=== PATIENT | male | born 1960 | race Caucasian/White ===

== ENCOUNTER 2017-10-14 17:36 | Emergency (ER) | payer OTHER, SELFPAY ==
[2017-10-14 17:44] VITALS: BP 148/88; PULSE 74; RESP 16; TEMP 36.5; O2SAT 97
--- NOTE | 2017-10-14 18:07 | ED.GENADUL_ITS ---
Disposition Clinical Impression: Right forearm thrombophlebitis Disposition: HOME Condition: Good Instructions: Superficial Thrombophlebitis (ED) Additional Instructions: I have ordered an outpatient ultrasound for you for tomorrow to rule out deep vein thrombus. We will treat you for superficial venous thrombophlebitis.. The radiology scheduling number is [phone]. If you do not hear from the schedule by 10 AM, please call to make an appointment time. May treat with warm, moist heat to reduce discomfort. Return to the emergency room he developed chest pain, shortness of breath, or any other acute concerns. Medical Decision Making - Medical Decision Making 57-year-old male with right forearm thrombophlebitis, cannot exclude DVT although I think this is less likely. Discussed with him management options at this late hour of the day. We will defer anticoagulation. I will order an outpatient ultrasound for tomorrow. Patient will be discharged home in interim. If the ultrasound is negative he will treat for thrombophlebitis. 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 He underwent uneventful right biceps tear repair 3 weeks ago. Today he noticed right forearm swelling and discomfort consistent with previous thrombophlebitis. Is not a chest pain or shortness of breath. It is mild, constant, achy. There is been no other significant change to the patient's condition. No exacerbating or ameliorating factors. - Related Data Gabapentin 100 mg PO TID 12/15/15 Insulin Pump Cartridge [Cartridge Stamped] 1 each SQ 12/15/15 Lisinopril 10 mg PO DIRECTED 12/15/15 Pindolol 5 mg PO BID 12/15/15 Allergies Allergy/AdvReac Type Severity Reaction Status Date / Time erythromycin base Allergy Nausea Unverified 10/14/17 17:49 Past Medical History - Past Medical History Medical history: diabetes, hypertension Surgical history: other (knee surgery arthroscopy, carpel tunnel release, insulin pump. ) General Exam - General Limitations: no limitations General appearance: in no apparent distress - Head Head exam: Present: atraumatic, normocephalic - Eye Eye exam: Present: PERRL, EOMI - Respiratory Respiratory exam: Present: normal lung sounds bilaterally. Absent: respiratory distress - Cardiovascular Cardiovascular Exam: Present: regular rate, normal rhythm - GI/Abdominal GI/Abdominal exam: Present: soft. Absent: distended - Extremities Exam Extremities exam: Present: normal capillary refill, other (The forearm has right proximal surgical incision well-healed. There is evidence of linear, tubular tenderness along the mid forearm consistent with thrombophlebitis. There is no swelling or pain of the humerus. No lymphadenopathy. 2+ radial pulse bilaterally. Full range of motion limited somewhat by the patient's postsurgical condition.) - Psychiatric Psychiatric exam: Present: normal affect, normal mood - Skin Skin exam: Present: warm, dry, intact Course Vital Signs - 24 hr 10/14/17 17:44 Temperature 36.5 C Pulse 74 Respiratory 16 Rate Blood Pressure 148/88 Pulse Oximetry 97
== END 2017-10-14 18:13 | disposition home or self-care (01) ==
PROVIDERS: Emergency Provider Emergency Medicine; PCP Family Medicine
DX: I80.8 Phlebitis and thrombophlebitis of other sites (principal); Z86.718 Personal history of other venous thrombosis and embolism; I10 Essential (primary) hypertension; E11.9 Type 2 diabetes mellitus without complications; Z96.41 Presence of insulin pump (external) (internal)
CPT/HCPCS: 99282

== ENCOUNTER 2017-10-15 12:16 | Outpatient (CLI) | payer OTHER, SELFPAY ==
--- NOTE | 2017-10-15 12:41 | DI.REPORT_ITS ---
SYMPTOM/DIAGNOSIS: H/O DVT, RT ARM PAIN AND SWELLING S/P SURGERY, ? DVT RIGHT UPPER EXTREMITY ULTRASOUND: There is thrombus seen in a portion of the cephalic vein distal to the elbow. The jugular, subclavian, axillary, basilic and brachial veins are patent. They show normal compression, augmentation and color flow. IMPRESSION: Venous thrombus seen in a portion of the cephalic vein distal to the elbow.
== END 2017-10-15 12:17 ==
PROVIDERS: PCP Family Medicine; Visit Provider Emergency Medicine
DX: M79.601 Pain in right arm (principal); R22.31 Localized swelling, mass and lump, right upper limb; I82.611 Acute embolism and thrombosis of superficial veins of right upper extremity; Z98.890 Other specified postprocedural states; Z86.718 Personal history of other venous thrombosis and embolism
CPT/HCPCS: 93971

== ENCOUNTER 2017-10-15 14:03 | Emergency (ER) | payer OTHER, SELFPAY ==
--- NOTE | 2017-10-15 14:05 | ED.GENADUL ---
Disposition Clinical Impression: Superficial thrombophlebitis of arm Disposition: HOME Condition: Good Instructions: Superficial Thrombophlebitis (ED) Additional Instructions: Follow-up with Rolando Reyna for recheck in 1-2 weeks time. If you have persistent discomfort you may require repeat ultrasound as we discussed. Please see enclosed instructions regarding superficial thrombophlebitis. Continue all of your regularly prescribed medications. Return to the emergency department if you develop chest pain, shortness of breath, or any other acute concerns. Call for an appointment to Medical Decision Making - Medical Decision Making 57-year-old male returns after visit with me yesterday for question superficial thrombophlebitis of the upper extremity versus DVT. Ultrasound today did not reveal evidence of DVT. Patient has a superficial thrombophlebitis. Will treat with heat and consideration of nonsteroidal. He will follow-up with primary care for recheck. History of Present Illness - General Stated complaint: PER DI Time Seen by Provider: 10/15/17 14:05 Source: patient Mode of arrival: ambulatory Limitations: no limitations - History of Present Illness Initial comments: Patient returns following visit yesterday for which he had follow-up ultrasound performed today. He had left forearm superficial thrombophlebitis. Ultrasound today did not reveal deep venous thrombus. He has been stable, improved, without further complaint - Related Data Gabapentin 100 mg PO TID 12/15/15 Insulin Pump Cartridge [Cartridge Stamped] 1 each SQ 12/15/15 Lisinopril 10 mg PO DIRECTED 12/15/15 Pindolol 5 mg PO BID 12/15/15 Allergies Allergy/AdvReac Type Severity Reaction Status Date / Time erythromycin base Allergy Nausea Unverified 10/14/17 17:49 Past Medical History - Past Medical History Medical history: diabetes, hypertension Surgical history: other (knee surgery arthroscopy, carpel tunnel release, insulin pump. ) General Exam - General Limitations: no limitations General appearance: alert, in no apparent distress - Head Head exam: Present: normocephalic - Eye Eye exam: Present: PERRL, EOMI - Respiratory Respiratory exam: Absent: respiratory distress - Extremities Exam Extremities exam: Present: tenderness, normal capillary refill, other (Left forearm palpable cord. No tenderness or swelling proximal to the elbow, 2+ radial pulse bilaterally.) - Neurological Exam Neurological exam: Present: alert, oriented X3 - Psychiatric Psychiatric exam: Present: normal affect, normal mood - Skin Skin exam: Present: warm, dry, intact
[2017-10-15 14:18] VITALS: BP 134/90; PULSE 64; RESP 14; TEMP 35.1; O2SAT 99
[2017-10-15 14:22] VITALS: BP 134/90; PULSE 64; RESP 14; TEMP 35.1; O2SAT 99
== END 2017-10-15 15:38 | disposition home or self-care (01) ==
PROVIDERS: Emergency Provider Emergency Medicine; PCP Family Medicine
DX: I80.8 Phlebitis and thrombophlebitis of other sites (principal); I10 Essential (primary) hypertension; E11.9 Type 2 diabetes mellitus without complications